=== PATIENT | male | born 1990 | race Caucasian/White ===

== ENCOUNTER 2022-09-06 18:18 | Emergency (ER) | payer BC, SELFPAY ==
[2022-09-06 18:27] VITALS: BP 126/80; PULSE 74; RESP 18; TEMP 36; O2SAT 98
--- NOTE | 2022-09-06 19:13 | ED.BACK ---
HPI - Back Pain/Injury General Chief Complaint: Back Pain/Injury Stated Complaint: Pulled muscle in back; pain in back Time Seen by Provider: 09/06/22 19:05 Source: patient and RN notes reviewed Mode of arrival: ambulatory Limitations: no limitations History of Present Illness HPI Narrative: Patient presents today complaining of a pulled low back muscle that occurred 4 days ago. Pain radiates down the buttock to the left thigh. Denies numbness or tingling in the extremities or genitalia. Denies loss of bowel or bladder control. States pain is at its worst towards the end of the day after work. He has been using ice, heat, and ibuprofen with very mild relief. Currently rates his pain 1/10, which increases to 5/10 with walking or bending. Denies history of chronic low back pain or previous back surgeries Related Data Allergies Allergy/AdvReac Type Severity Reaction Status Date / Time acetaminophen [From Vicodin] Allergy Itching Verified 09/06/22 18:34 hydrocodone [From Vicodin] Allergy Itching Verified 09/06/22 18:34 UNKNOWN BRONCHITIS MED Allergy HIVES Uncoded 09/06/22 18:23 WEED B-GONE Allergy Siezure Uncoded 09/06/22 18:23 Review of Systems Review of Systems: CONSTITUTIONAL: Denies body aches, fever, chills, or sweats. EYES: Denies visual changes, redness, or discharge. ENT: Denies rhinorrhea, congestion, sore throat, or otalgia. CARDIOVASCULAR: Denies chest pain, palpitations, or edema. RESPIRATORY: Denies cough or dyspnea. GASTROINTESTINAL: Denies abdominal pain, nausea, vomiting, or diarrhea. GENITOURINARY: Denies dysuria or hematuria. SKIN: Denies rash, itching, or wounds. MUSCULOSKELETAL: Denies joint pain, or myalgia.+ low back pain NEUROLOGIC: Denies headache, numbness, tingling, or weakness. PSYCH: Denies depression or anxiety. PMFSH Comments At time of signature, I have reviewed and agree with nursing past medical, surgical, social and family history unless otherwise noted. Please see nursing chart for further information. There is no relevant family history pertinent to the presenting complaint Exam Narrative: GENERAL: Well-appearing, well-nourished, and in no acute distress. HEAD: Normocephalic, atraumatic. EYES: EOMI. No redness or drainage. Conjunctivae normal. ENT: Mucous membranes pink and moist. NECK: Normal AROM. CHEST: No respiratory distress. MUSCULOSKELETAL: No bony tenderness. No tenderness of the thoracic or lumbar paraspinal muscles. No tenderness of the SI joints. Patient localizes pain to the left lower lumbar paraspinal muscles into the left SI joint. Distal sensation intact. Saddle sensation intact. Capillary refill normal. Pedal pulses normal. Dorsiflexion and plantar flexion equal and strong against resistance. Patellar reflexes 2 bilaterally. EXTREMITIES: Normal range of motion. No edema. SKIN: Warm, dry, no rash. Capillary refill normal. Normal skin turgor. NEURO: No focal deficits. Alert and oriented x3. Gait steady. PSYCH: Normal affect. No signs of depression or anxiety. Course Course Level of Care: Express Care Visit Vital Signs Vital signs: Vital Signs Temperature 96.8 F L 09/06/22 18:27 Pulse Rate 74 09/06/22 18:27 Respiratory Rate 18 09/06/22 18:27 Blood Pressure 126/80 09/06/22 18:27 Pulse Oximetry 98 09/06/22 18:27 Oxygen Delivery Room Air 09/06/22 18:27 Temperature 96.8 F L 09/06/22 18:27 Pulse Rate 74 09/06/22 18:27 Respiratory Rate 18 09/06/22 18:27 Blood Pressure 126/80 09/06/22 18:27 Pulse Oximetry 98 09/06/22 18:27 Oxygen Delivery Room Air 09/06/22 18:27 Reviewed. Pt has been instructed to follow up with his PCP regarding his elevated blood pressure today. MDM - Back Pain/Injury MDM Narrative Medical decision making narrative: Exam consistent with lumbar strain and sciatica. Will treat with Flexeril and prednisone. Anticipatory guidance given. Differential Diagnosis Differential di
== END 2022-09-06 19:21 | disposition home or self-care (01) ==
PROVIDERS: Emergency Provider Nurse Practitioner; PCP Family Medicine
DX: M54.42 Lumbago with sciatica, left side (principal)
CPT/HCPCS: 99213; G0463

== ENCOUNTER 2025-04-23 13:10 | Emergency (ER) | payer BC, SELFPAY ==
--- NOTE | 2025-04-23 13:17 | ED.BACK ---
HPI - Back Pain/Injury General Chief Complaint: Back Pain/Injury Stated Complaint: lower back pain Time Seen by Provider: 04/23/25 14:00 Source: patient Mode of arrival: ambulatory Limitations: no limitations History of Present Illness HPI Narrative: Luis is a 35-year-old male patient presenting to the clinic today with complaints of low back pain x1 day. Reports he was bending down to lift up a laundry basket yesterday and had instant pain to the mid low back that is radiating across the back. He has used Tylenol, lidocaine patch, heat, and ice for his symptoms. He denies any pain when resting but when he is moving he is having pain. Denies any saddle anesthesia or loss of bowel or bladder. Rates pain 7 at 10 currently with movement. Related Data Allergies Allergy/AdvReac Type Severity Reaction Status Date / Time acetaminophen (From Vicodin) Allergy Itching Verified 04/23/25 13:13 hydrocodone (From Vicodin) Allergy Itching Verified 04/23/25 13:13 UNKNOWN BRONCHITIS MED Allergy HIVES Uncoded 04/14/23 15:48 WEED B-GONE Allergy Siezure Uncoded 04/14/23 15:48 Review of Systems Review of Systems: Pertinent positives per HPI. Patient denies any fever, chills, rash, headache, visual changes, dizziness, cough, runny nose, sore throat, shortness of breath, chest pain, palpitations, nausea, vomiting, diarrhea, constipation, abdominal pain, or any urinary issues. PMFSH Social History Social History Smoking status: Current every day smoker Comments At the time of my signature, I reviewed and agree with the nursing past medical, surgical, social, and family history. There is no relevant family history pertinent to the patient complaint. Exam Narrative: General: Well-developed, well nourished, in no apparent distress Head: Normocephalic, atraumatic. Cardio: Regular rate and rhythm, s1 and s2 normal, no murmur appreciated. Resp: Clear to auscultation bilaterally, no rhonchi, rales, wheezing or rubs. Musculoskeletal: No deformity, tender to palpation over the mid low back with radiation of pain to bilateral sides, no radiation of pain down legs, grossly normal range of motion, muscle strength strong and equal in BLE. SLT negative, patellar reflexes 2/4 bilaterally, negative foot drop, slow cautious gait and station Course Course Level of Care: Express Care Visit Vital Signs Vital signs: Vital Signs Temperature 36.6 C 04/23/25 13:38 Pulse Rate 76 04/23/25 13:38 Respiratory Rate 18 04/23/25 13:38 Blood Pressure 145/83 H 04/23/25 13:38 Pulse Oximetry 99 04/23/25 13:38 Oxygen Delivery Room Air 04/23/25 13:38 Temperature 36.6 C 04/23/25 13:38 Pulse Rate 76 04/23/25 13:38 Respiratory Rate 18 04/23/25 13:38 Blood Pressure 145/83 H 04/23/25 13:38 Pulse Oximetry 99 04/23/25 13:38 Oxygen Delivery Room Air 04/23/25 13:38 MDM MDM Narrative Medical decision making narrative: At the time of visit patient is resting comfortably on the exam table. Patient appears to be nontoxic. Complaints of low back pain x1 day. Reports he was bending down to lift up a laundry basket yesterday and had instant pain to the mid low back that is radiating across the back. He has used Tylenol, lidocaine patch, heat, and ice for his symptoms. He denies any pain when resting but when he is moving he is having pain. Denies any saddle anesthesia or loss of bowel or bladder. On exam patient has tenderness to palpation over the mid low back with radiation of pain to bilateral sides, no radiation of pain down legs, grossly normal range of motion, muscle strength strong and equal in BLE. SLT negative, patellar reflexes 2/4 bilaterally, negative foot drop, slow cautious gait and station. Plan: I suspect patient has low back strain/pain. Prescription for Medrol Dosepak and baclofen was sent to the pharmacy. Work note was given. Do not feel as though a x-ray is necessary at this time. Supportive measures were discussed with the patient and they voiced understanding discharge instructions and agrees to treatment plan. Return precautions reviewed Differential Diagnosis Differential Diagnosis: Differential diagnostic considerations for back pain include herniated disc, sciatica, abscess, strain/sprain, discitis, myelitis, fracture, hematoma, cauda equina, osteomyelitis, metastatic and/or primary malignancy, renal colic, pyelonephritis, AAA. Discharge Plan Discharge Clinical Impression: Strain of muscle, fascia and tendon of lower back, initial encounter Patient Disposition: Home Condition: Stable Instructions: Antibiotic Form, Acute Low Back Pain (ED) Additional Instructions: Take any prescription medication only as prescribed-Medrol Dosepak and baclofen Be mindful of sedation precautions given to you if taking a muscle relaxer. May use heat or ice to the affected area Consider massage or chiropractor adjustment if this was discussed with provider May use blue emu, lidocaine patches, or asper cream to affected area- do not apply heat or ice directly over cream- can cause burn. Complete appropriate back stretching exercises. Follow up with your PCP in 3-5 days if symptom persist. Patient Language: Armenian Prescriptions: New methylprednisolone [Medrol (Noé)] 4 mg tablets,dose pack See Rx Instructions PO .COMPLEX Qty: 21 0RF Rx Instructions: orally per package directions baclofen 10 mg tablet 10 mg PO TID PRN (Reason: back pain) 7 Days Qty: 21 0RF Follow-up/Referrals: Juan Manuel Palacios MD [Primary Care Provider, Family Practice] Stand Alone Forms: Work/School Release IP Time of Disposition: 14:03 Quality NIHSS Nursing Documentation ED NIHSS nursing documentation: reviewed/agree
[2025-04-23 13:38] VITALS: BP 145/83; PULSE 76; RESP 18; TEMP 36.6; O2SAT 99
== END 2025-04-23 14:08 | disposition home or self-care (01) ==
PROVIDERS: Emergency Provider Nurse Practitioner Family; PCP Family Medicine
DX: S39.012A Strain of muscle, fascia and tendon of lower back, initial encounter (principal); X50.9XXA Other and unspecified overexertion or strenuous movements or postures, initial encounter; F17.200 Nicotine dependence, unspecified, uncomplicated; E78.00 Pure hypercholesterolemia, unspecified
CPT/HCPCS: 99213; G0463